=== PATIENT | female | born 1980 | race Caucasian/White ===

== ENCOUNTER 2021-11-23 07:04 | Outpatient (CLI) | payer OTHER, SELFPAY ==
--- NOTE | 2021-11-23 07:15 | US_ITS ---
WS: [id number] TRANSVAGINAL PELVIC ULTRASOUND HISTORY: POLYCYSTIC OVARIAN SYNDROME COMPARISON: None available. Uterus: 7.0 cm x 4.4 cm x 3.6 cm. Normal size anteverted uterus. Small hypoechoic nodule noted along the anterior myometrium measuring 8 x 9 x 6 mm. Most consistent with a small fibroid. Endometrium: 0.5 cm. Normal homogeneity throughout. No mass or increased vascularity. Right ovary: 2.6 cm x 1.3 cm x 2.3 cm. Normal size and vascularity, no cystic or solid masses. Left ovary: 2.3 cm x 1.6 cm x 2.2 cm. Normal size and vascularity, no cystic or solid masses. Small amount of free fluid in the cul-de-sac. US/US transvaginal [id number] IMPRESSION: 1. Very small anterior fibroid. 2. Normal endometrium. 3. No evidence for polycystic ovarian disease by ultrasound.
== END 2021-11-23 07:05 | disposition home or self-care (01) ==
LOC: RAD 07:07
PROVIDERS: Family Provider Internal Medicine; Visit Provider Pediatrics
DX: E28.2 Polycystic ovarian syndrome (principal); D25.9 Leiomyoma of uterus, unspecified
CPT/HCPCS: 76830

== ENCOUNTER → 2022-03-27 13:16 | Outpatient (BNVA) | payer OTHER, SELFPAY | PROVIDERS: Family Provider Internal Medicine; Visit Provider Obstetrics & Gynecology | DX: R53.83 Other fatigue (principal) | CPT/HCPCS: 84443 ==